=== PATIENT | female | born 1995 | race Caucasian/White ===

== ENCOUNTER → 2023-02-11 08:33 | Outpatient (CLI) | payer OTHER, SELFPAY ==
[2023-02-11 09:12] LABS: Add Manual Diff / Slide Review NO; Basophils Absolute Auto 0 /uL (0-100); Basophils Percent Auto 0.4 % (0-2); Eosinophils Absolute Auto 100 /uL (0-450); Eosinophils Percent Auto 2.1 % (2-4); Hematocrit 37.2 % (36-46); Hemoglobin 12.8 g/dL (12.0-16.0); Lymphocytes Absolute Auto 2100 /uL (1100-4500); Lymphocytes Percent Auto 40.8 % (25-40); Mean Corpuscular HGB Conc 34.3 % (30-36); Mean Corpuscular Hemoglobin 28.7 PG (26-34); Mean Corpuscular Volume 83.7 fL (80-100); Monocytes Absolute Auto 300 /uL (0-900); Monocytes Percent Auto 5.2 % (3-14); Neutrophils Absolute Auto 2700 /uL (1500-7000); Neutrophils Percent Auto 51.5 % (50-75); Platelet Count 226 X10^3/uL (150-400); Red Blood Cell Count 4.44 X10^6/uL (4.0-5.2); Red Cell Distribution Width 13.9 % (11.6-14.8); White Blood Cell Count 5.2 X10^3/uL (4.5-11.0)
[2023-02-11 09:33] LABS: HEMOLYSIS < 15 (0-50); Iron 138 ug/dL (37-170)
[2023-02-11 09:47] LABS: Percent Iron Saturation 39 % (15-50); Total Iron Binding Capacity 350 ug/dL (265-497); Transferrin 265 mg/dL (206-381)
[2023-02-11 10:12] LABS: Ferritin 34 ng/mL (6-137)
[2023-02-11 10:13] LABS: Appearance Urine UA CLEAR; Bilirubin Urine UA NEGATIVE (NEGATIVE); Color Urine UA YELLOW; Glucose Urine UA NEGATIVE (Negative); Ketones Urine UA TRACE (NEGATIVE); Leukocyte Esterase Urine UA NEGATIVE (NEGATIVE); Nitrite Urine UA NEGATIVE (Negative); Occult Blood Urine UA NEGATIVE (Negative); Protein Urine UA 2+ (Negative); Specific Gravity Urine UA >=1.030 (1.000-1.035); Urobilinogen Urine UA 0.2 E.U./dL (0.2)
[2023-02-11 10:17] LABS: pH Urine UA 5.5 (4.5-8.0)
[2023-02-11 10:21] LABS: Bacteria Urine None Seen; Culture Indicated Urine Cult Not Indicated; RBC Urine None Seen (0-5/HPF); Squamous Epithelial Cell Urine 1-5 /HPF (0-5/HPF); WBC Urine 1-5/HPF (0-5/HPF)
== END ==
PROVIDERS: PCP Family Medicine; Referring Provider Family Medicine; Visit Provider Family Medicine
DX: O14.90 Unspecified pre-eclampsia, unspecified trimester; D64.9 Anemia, unspecified; Z3A.00 Weeks of gestation of pregnancy not specified
CPT/HCPCS: 36415; 81001; 82728; 83540; 83550; 85025

== ENCOUNTER → 2023-04-22 13:33 | Outpatient (CLI) | payer OTHER, SELFPAY ==
[2023-04-22 14:40] LABS: Hematocrit 37.5 % (36-46); Hemoglobin 12.8 g/dL (12.0-16.0)
[2023-04-22 14:51] LABS: BUN Creatinine Ratio 21.3 (6-22); Blood Urea Nitrogen 13 mg/dL (7-17); Carbon Dioxide 29 mmol/L (22-32); Chloride 99 mmol/L (98-107); Estimated Glomerular Filt Rate > 60 mL/min (>60); Glucose 90 mg/dL (70-100); HEMOLYSIS < 15 (0-50); Potassium 4.1 mmol/L (3.4-5.1); Sodium 137 mmol/L (137-145)
[2023-04-22 16:42] LABS: Creatinine Urine Random 65.5 mg/dL; Protein (Total) Urine Random 8 mg/dL (0-12); Protein Creatinine Ratio Urine 0.12 GRAM/24H
== END ==
PROVIDERS: PCP Family Medicine; Referring Provider Student in an Organized Health Care Education/Training Program; Visit Provider Student in an Organized Health Care Education/Training Program
DX: N05.9 Unspecified nephritic syndrome with unspecified morphologic changes (principal); D64.9 Anemia, unspecified; R80.9 Proteinuria, unspecified
CPT/HCPCS: 36415; 80048; 82570; 84156; 85014; 85018

== ENCOUNTER → 2023-06-30 08:23 | Outpatient (CLI) | payer OTHER, SELFPAY | LOC: LAB 08:24 | PROVIDERS: PCP Family Medicine; Referring Provider Family Medicine; Visit Provider Family Medicine | DX: Q99.9 Chromosomal abnormality, unspecified (principal) | CPT/HCPCS: 36415 ==

== ENCOUNTER → 2023-09-11 11:12 | Outpatient (CLI) | payer OTHER, SELFPAY | PROVIDERS: PCP Family Medicine; Visit Provider Student in an Organized Health Care Education/Training Program | DX: O09.299 Supervision of pregnancy with other poor reproductive or obstetric history, unspecified trimester (principal) | CPT/HCPCS: 87086 ==

== ENCOUNTER 2023-10-13 11:23 | Day surgery (SDC) | payer OTHER, SELFPAY ==
[2023-10-13] VITALS (7 sets, daily range): BP systolic 85–128; BP diastolic 48–83; PULSE 52–86; RESP 10–16; TEMP 36.3–37.3; O2SAT 97–100; BMI 19.2
--- NOTE | 2023-10-13 | PATH_ITS ---
[facility] Accession Number: [id number] No. of containers..01 Tissue . 01 Material submitted: . product of conception - PRODUCTS OF CONCEPTION . 01 Diagnosis: PRODUCTS OF CONCEPTION: Chorionic villi present. No evidence of malignancy. MRV 10/15/2023 1340 Local . 01 Electronically signed: . Avery Hernández MD, PhD, Pathologist NPI- [id number] . 01 Gross description: . Received in formalin with two patient identifiers and consists of a 14.5 x 7.0 x 2.2 cm aggregate of clotted blood, white fibromembranous tissue, white spongy soft tissue. No parts or papilliferous tissue are appreciated. Winder Fixer sections are submitted in cassettes A1 and A2. ([id number]) /MRV 10/14/2023 1421 Local . 01 Pathologist provided ICD-10: O02.1 . 01 CPT . 159108 Specimen Comment: A courtesy copy of this report has been sent to [facility] Performed at: 01 [facility] [address] [place] [address], [place], [place] [id number] MD Jaya Moy MD Phone: [phone]
[2023-10-13] MEDS: LACTATED RINGERS 1,000 ML 42 ML IV (11:43)
[2023-10-13] MEDS: DOXYCYCLINE HYCLATE 100 MG TABLET 200 MG PO (11:44)
--- NOTE | 2023-10-13 11:47 | PM.PREOP ---
Pre-operative Note Interval Note History & Physical reviewed/Exam performed by Physician: Yes Changes to H&P: No H&P completed within 30 days and has changed as indicated here:: see H&P from 10/09/23 Surgical consent: The risks, benefits, and alternatives to surgery were discussed with the patient. We discussed the risk of bleeding, infection, uterine perforation, and possible uterine scarring. Anticipated hospital stay, post- surgical restrictions, and usual complications were discussed at length. The patient was also counseled that anesthesia carries its own risks and that any major surgery carries the rare risk of blood clots, pulmonary embolism, stroke, heart attack, or . There is a risk of needing blood transfusion and the risks of having the transfusion with blood products. All of the patient?s questions were answered to her satisfaction and she desires to proceed with surgery.
--- NOTE | 2023-10-13 12:42 | PM.OP.1 ---
Operative Date/Time/Diagnoses Date of procedure: 10/13/23 Time of procedure: 12:00 Pre-op diagnosis: Missed Post-op diagnosis: same Procedure & Clinicians Procedure: Suction dilation and curettage Same procedure as scheduled: Yes Indications: 28yo [id number] diagnosed with missed approximately 8wks EGA. Patient desired surgical management, thus she was counseled and consented for suction dilation and curettage. Surgeon: Litzy Alcantara Click Yes if Unassisted: Yes Anesthesia Type: General Operative Notes Findings: Moderate amount of tissue obtained. Slow uterine bleeding noted at the end of the case. Specimen(s): other (products of conception) Estimated Blood Loss (mL): 450 Blood products transfused: none Procedure in detail: The risks, benefits, indications and alternatives of the procedure were reviewed with the patient and informed consent was obtained. The pt was taken to the operating room where anesthesia was obtained without difficulty. The pt was then placed in the low lithotomy position using gel-padded Gregor Stirrups. SCDs were placed bilaterally for VTE prophylaxis. The pt was then prepped and draped in the sterile fashion. She received preoperative 200mg doxycycline for prophylaxis. A sterile speculum was placed in the patient?s vagina and the cervix was visualized.? A single tooth tenaculum was used to grasp the anterior lip of the cervix. The cervix was then gently, serially dilated to a size 8mm Hegar dilator. An 8mm curved suction catheter was then introduced into the uterine cavity and gently advanced to the uterine fundus. The suction device was then activated to 60mmHg and the catheter was rotated to clear the uterus of products of conception. Several passes were performed with a moderate amount of tissue obtained. A gentle, sharp curettage was then performed until a gritty texture was noted. All tissue was sent to pathology for review. The single tooth tenaculum was then removed from the anterior lip of the cervix. The tenaculum sites were noted to be hemostatic. All instruments were then removed from the patient?s vagina. At the completion of the case the sponge and needle counts were correct x 2. The patient tolerated the procedure well and was taken to the PACU in stable condition. Complications: none Post-operative Condition: stable Disposition: PACU Plan for aftercare: Discharge to home once meeting all discharge criteria.
== END 2023-10-13 12:52 | disposition home or self-care (01) ==
PROVIDERS: PCP Family Medicine; Referring Provider Student in an Organized Health Care Education/Training Program; Visit Provider Student in an Organized Health Care Education/Training Program
PROC: (CPT 58120; principal; 2023-10-13 12:45)
DX: O02.1 Missed abortion (principal)
CPT/HCPCS: 59820; J1100; J2250; J2405; J2704; J3010

== ENCOUNTER → 2024-03-09 13:43 | Outpatient (CLI) | payer OTHER, SELFPAY ==
[2024-03-09 16:55] LABS: Urine Chlamydia NOT DETECTED; Urine N gonorrhoeae NOT DETECTED
== END ==
PROVIDERS: PCP Family Medicine; Visit Provider Student in an Organized Health Care Education/Training Program
DX: Z34.80 Encounter for supervision of other normal pregnancy, unspecified trimester (principal)
CPT/HCPCS: 87491; 87591

== ENCOUNTER → 2024-03-27 09:18 | Outpatient (CLI) | payer OTHER, SELFPAY ==
[2024-03-27 10:39] LABS: Add Manual Diff / Slide Review NO; Basophils Absolute Auto 0 /uL (0-100); Basophils Percent Auto 0.3 % (0-2); Eosinophils Absolute Auto 0 /uL (0-450); Eosinophils Percent Auto 0.8 % (2-4); Hematocrit 34.4 % (36-46); Hemoglobin 11.9 g/dL (12.0-16.0); Lymphocytes Absolute Auto 1700 /uL (1100-4500); Mean Corpuscular HGB Conc 34.4 % (30-36); Mean Corpuscular Hemoglobin 29.2 PG (26-34); Mean Corpuscular Volume 84.7 fL (80-100); Monocytes Absolute Auto 300 /uL (0-900); Monocytes Percent Auto 4.9 % (3-14); Neutrophils Absolute Auto 3700 /uL (1500-7000); Platelet Count 250 X10^3/uL (150-400); Red Blood Cell Count 4.07 X10^6/uL (4.0-5.2); Red Cell Distribution Width 15.1 % (11.6-14.8); White Blood Cell Count 5.8 X10^3/uL (4.5-11.0)
[2024-03-27 10:56] LABS: Natera Collection Specimen Collected
[2024-03-27 11:08] LABS: Alanine Aminotransferase 19 IU/L (<35); Aspartate Aminotransferase 23 IU/L (14-36); BUN Creatinine Ratio 20.9 (6-22); Blood Urea Nitrogen 9 mg/dL (7-17); Estimated Glomerular Filt Rate > 60 mL/min (>60); Uric Acid 2.4 mg/dL (2.5-6.2)
[2024-03-27 11:11] LABS: Creatinine Urine Random 18.99 mg/dL; Protein (Total) Urine Random 12 mg/dL (0-12); Protein Creatinine Ratio Urine 0.63 GRAM/24H
[2024-03-27 18:56] LABS: Hepatitis B Surface Antigen NEGATIVE s/c (NEGATIVE)
[2024-03-27 19:26] LABS: HIV 1 & 2 Ab/Ag 4th Gen Combo NEGATIVE (NEGATIVE); Hep C Virus Ab w/Reflex Quant NEGATIVE s/c (NEGATIVE)
[2024-03-27 20:54] LABS: Rubella Antibody IgG 78.2 IU/mL (>15)
[2024-03-28 10:39] LABS: Varicella IgG Antibody Reactive (Non Reactive)
[2024-03-30 04:09] LABS: RPR Screen Non Reactive (Non Reactive)
== END ==
PROVIDERS: PCP Family Medicine; Referring Provider Student in an Organized Health Care Education/Training Program; Visit Provider Student in an Organized Health Care Education/Training Program
DX: O09.299 Supervision of pregnancy with other poor reproductive or obstetric history, unspecified trimester (principal); Z3A.11 11 weeks gestation of pregnancy
CPT/HCPCS: 36415; 80055; 82565; 82570; 84156; 84450; 84460; 84520; 84550; 86787; 86803; 86850; 86900; 86901; 87389

== ENCOUNTER → 2024-05-31 09:54 | Outpatient (CLI) | payer OTHER, SELFPAY ==
--- NOTE | 2024-05-31 09:55 | DI.US.S_ITS ---
PROCEDURE: US OB >= 14 WEEKS FETUS INDICATIONS: 20 week anatomy scan OUTSIDE/PRIOR DATING DATA: Last menstrual period (LMP): Unknown LMP-based estimated date of delivery (KOLE): 10/10/2024 First dating scan (date and location): 03/09/2024. Estimated date of delivery (KOLE) from first dating scan: 10/16/2024 TECHNIQUE: Real-time scanning was performed of the fetus, with image documentation and biometric measurements. Endovaginal scanning: No COMPARISON: None. FINDINGS: General: A single living intrauterine gestation is present. Presentation: Anterior; inferior tip is 0.6 cm from the cervical os Placenta: Placental position is anterior , without previa. Normal >2 cm. Low lying is <2 cm to the edge. Previa covers the internal os. Amniotic fluid index: 14 cm, normal range is 5-24 cm. Single deepest vertical pocket is 5.6 cm. heart rate: 146 beats per minute. Maternal cervical canal: 4.4 cm long. Normal lower limit is 2.5 cm. biometrics: Biparietal diameter: 5.1 cm Head circumference: 18.9 cm Abdominal circumference: 17.1 cm Femur length: 3.3 cm Clinically estimated gestational age: 20 weeks and 2 days Composite gestational age from present scan: 21 weeks and 2 days Estimated weight and percentile: 412 g, 92nd percentile Anatomic survey: Neuro: Ventricles are non-dilated at less than 10 mm. Cisterna magna is normal at 3-11 mm. Cerebellum is normal in size and morphology. Nuchal skin fold: Normal at less than 6 mm between 14-21 weeks gestational age. Face: Nose and lips, facial profile are normal. Spine: No evidence for spina bifida. Heart: 4-chambered heart is present, with normal ventricular outflow tracts. Diaphragm: Diaphragm is intact. Stomach: Left-sided stomach is present. Kidneys: No hydronephrosis. Normal is less than 5 mm in 2nd trimester, less than 7 mm in 3rd trimester. Cord: 3-vessel cord has orthotopic insertion. Bladder: Normal in size. Extremities: All 4 extremities identified. IMPRESSION: 1. Single live intrauterine with an estimated gestational age of 21 weeks and 2 days by ultrasound. 2. Estimated weight at 92nd percentile. 3. No sonographic anatomic abnormality of the fetus. 4. Anterior placenta with the inferior tip 0.6 cm from the cervical os. We strive to produce accurate, complete, and clear reports of imaging services. To assist us in improving patient care, this report was composed using standard report templates and voice recognition software. Therefore, it may contain abnormal punctuation, insertions and/or omissions. Occasional wrong-word or sound-alike substitutions may occur. Though we review the report and make efforts to correct it, we do recommend that the report be read carefully in proper context to recognize any text inaccuracies. Dictated by: Miakol Waggoner M.D. on 05/31/2024 at 15:43 Approved by: Maikol Waggoner M.D. on 05/31/2024 at 15:50
== END ==
PROVIDERS: PCP Family Medicine; Referring Provider Student in an Organized Health Care Education/Training Program; Visit Provider Student in an Organized Health Care Education/Training Program
DX: Z34.82 Encounter for supervision of other normal pregnancy, second trimester (principal); Z3A.21 21 weeks gestation of pregnancy
CPT/HCPCS: 76811; 76817

== ENCOUNTER → 2024-07-15 08:53 | Outpatient (CLI) | payer OTHER, SELFPAY ==
[2024-07-15 10:39] LABS: Hemoglobin 12.3 g/dL (12.0-16.0)
[2024-07-15 11:01] LABS: GTT (PREG) 1 Hour PP 50gm Dose 110 mg/dL (76-139)
== END ==
PROVIDERS: PCP Family Medicine; Referring Provider Student in an Organized Health Care Education/Training Program; Visit Provider Student in an Organized Health Care Education/Training Program
DX: Z13.1 Encounter for screening for diabetes mellitus (principal); Z13.0 Encounter for screening for diseases of the blood and blood-forming organs and certain disorders involving the immune mechanism
CPT/HCPCS: 36415; 82950; 85014; 85018

== ENCOUNTER → 2024-08-17 08:31 | Outpatient (CLI) | payer OTHER, SELFPAY ==
--- NOTE | 2024-08-17 08:33 | DI.US.S_ITS ---
PROCEDURE: US OB FOLLOW UP INDICATIONS: re-evaluate low lying placenta OUTSIDE/PRIOR DATING DATA: Last menstrual period (LMP): Not provided. LMP-based estimated date of delivery (KOLE): 10/10/2024. First dating scan (date and location): 03/09/2024. Estimated date of delivery (KOLE) from first dating scan: 10/16/2024. The calculations are made using the ultrasound KOLE of 10/16/2024. TECHNIQUE: Real-time scanning was performed of the fetus, with image documentation and biometric measurements. COMPARISON: [facility], US, US OB >= 14 WEEKS FETUS, 05/31/2024, 10:02. FINDINGS: General: A single living intrauterine gestation is present. Presentation: Vertex. Placenta: Placental position is anterior , without previa. It measures 7 cm from the internal os. Amniotic fluid index: 12.5 cm, normal range is 5-24 cm. Single deepest vertical pocket is 4.4 cm. heart rate: 145 beats per minute. Maternal cervical canal: 4.1 cm long. Normal lower limit is 2.5 cm. biometrics: Composite gestational age from initial scan: 31 weeks 3 days Other: Not applicable. IMPRESSION: Single live intrauterine with gestational age of 31 weeks 3 days. No evidence of low lying or placental previa. We strive to produce accurate, complete, and clear reports of imaging services. To assist us in improving patient care, this report was composed using standard report templates and voice recognition software. Therefore, it may contain abnormal punctuation, insertions and/or omissions. Occasional wrong-word or sound-alike substitutions may occur. Though we review the report and make efforts to correct it, we do recommend that the report be read carefully in proper context to recognize any text inaccuracies. Dictated by: Caitlin Armstrong M.D. on 08/17/2024 at 14:51 Approved by: Caitlin Armstrong M.D. on 08/17/2024 at 14:53
== END ==
PROVIDERS: PCP Family Medicine; Referring Provider Student in an Organized Health Care Education/Training Program; Visit Provider Student in an Organized Health Care Education/Training Program
DX: O44.40 Low lying placenta NOS or without hemorrhage, unspecified trimester (principal)
CPT/HCPCS: 76816

== ENCOUNTER → 2024-08-30 09:26 | Outpatient (CLI) | payer OTHER, SELFPAY ==
[2024-08-30 10:20] LABS: Alanine Aminotransferase 45 IU/L (<35); Albumin 3.5 g/dL (3.5-5.0); Albumin Globulin Ratio 1.2 (1.0-2.8); Alkaline Phosphatase 255 U/L (38-126); Aspartate Aminotransferase 44 IU/L (14-36); BUN Creatinine Ratio 15.2 (6-22); Bilirubin Total 0.6 mg/dL (0.2-1.3); Blood Urea Nitrogen 7 mg/dL (7-17); Calcium 9.5 mg/dL (8.4-10.2); Carbon Dioxide 19 mmol/L (22-32); Chloride 108 mmol/L (98-107); Estimated Glomerular Filt Rate > 60 mL/min (>60); Globulin 2.9 g/dL (1.7-4.1); Glucose 102 mg/dL (70-100); HEMOLYSIS < 15 (0-50); Potassium 3.9 mmol/L (3.4-5.1); Sodium 137 mmol/L (137-145); Total Protein 6.4 g/dL (6.3-8.2)
== END ==
PROVIDERS: PCP Family Medicine; Referring Provider Student in an Organized Health Care Education/Training Program; Visit Provider Student in an Organized Health Care Education/Training Program
DX: L29.9 Pruritus, unspecified (principal)
CPT/HCPCS: 36415; 80053; 82239

== ENCOUNTER 2024-08-30 09:39 | Outpatient (CLI) | payer OTHER, SELFPAY ==
--- NOTE | 2024-08-30 10:14 | PM.OBTRLD ---
Visit Information Visit Information Date of evaluation: 08/30/24 Primary OB Provider: Litzy Alcantara Comments/Additional reasons for admission: Patient called with new onset itching of palms/soles, worse at night over the weekend, as well as decreased movement. Vital Signs Vital Signs: vitals reviewed in OBIX, within normal parameters [facility] Medical History Encounter for supervision of other normal , unspecified trimester Proteinuria Missed (~10/2023) Migraine without aura Leg fracture Arm fracture Chromosome abnormalities Iron deficiency anemia Pre-eclampsia Surgical History History of removal of skin mole [place] teeth extracted Family History Brother Type 1 diabetes Chromosomal abnormality Father Benign neoplasm of ear Grandmother S/P CABG x 2 Heart disease Granddaughter Melanoma Grandmother Cancer Grandfather No problems noted. Social History marital status: number of children: 1 household members: spouse and children lives independently: Yes caregiver/support person: Yes housing: house pets and animals: Yes (dog) education level: vocational occupational status: unemployed current occupational exposures/hazards: No special juan needs: No travel history: recent ([place], domestic ) seatbelt use: always water heater temp set < 120 deg: Yes working smoke detector in home: Yes fire extinguisher in home: Yes carbon monox detector in home: Yes do you feel safe at home: Yes second hand exposure: No alcohol intake: former substance use type: does not use during the past year weight has: other (back to below pre-baby wt (daughter is currently 16 months old)) well-balanced diet: about half the time daily servings fruits/ve-4 caffeine: Yes (1 cup coffee in AM) Type(s) of exercise: walking frequency: daily Evaluation Evaluation Baseline heart rate: 140 Variability: Moderate (11-25) monitor accelerations: Present Monitor Decelerations: Absent Category of Tracing: Reactive Diagnosis, Plan/Disposition Final Diagnosis (1) Pruritus of in third trimester: Status: Acute (2) Elevated liver enzymes: Status: Acute (3) 33 weeks gestation of : Status: Acute Plan/Disposition Plan: 29yo at 33+2wks with presumed ICP based on symptoms and elevated LFTs today. Reactive NST. Bile acids drawn today. -advised to start ursodiol 300mg TID -advised to use hydroxyzine for itching as needed -will start weekly NSTs -delivery timing will be determined based on bile acid levels and other maternal factors OB Disposition: home
== END 2024-08-30 10:20 | disposition home or self-care (01) ==
LOC: OB 12:36
PROVIDERS: PCP Family Medicine; Referring Provider Student in an Organized Health Care Education/Training Program; Visit Provider Student in an Organized Health Care Education/Training Program
DX: O26.893 Other specified pregnancy related conditions, third trimester (principal); O36.8130 Decreased fetal movements, third trimester, not applicable or unspecified; L29.9 Pruritus, unspecified; R74.01 Elevation of levels of liver transaminase levels; Z3A.33 33 weeks gestation of pregnancy
CPT/HCPCS: 36415; 59025; 80053; 82239; G0378; G0379

== ENCOUNTER → 2024-09-01 15:50 | Outpatient (CLI) | payer OTHER, SELFPAY ==
[2024-09-03 23:11] LABS: Bile Acids 63.5 umol/L (0.0-10.0)
== END ==
PROVIDERS: PCP Family Medicine; Referring Provider Student in an Organized Health Care Education/Training Program; Visit Provider Student in an Organized Health Care Education/Training Program
DX: R74.8 Abnormal levels of other serum enzymes (principal); Z3A.33 33 weeks gestation of pregnancy
CPT/HCPCS: 36415; 82239

== ENCOUNTER 2024-09-07 09:09 | Outpatient (CLI) | payer OTHER, SELFPAY ==
--- NOTE | 2024-09-07 09:30 | DI.US.S_ITS ---
PROCEDURE: US OB LIMITED INDICATIONS: MEASURING LESS THAN DATES OUTSIDE/PRIOR DATING DATA: Last menstrual period (LMP): Not given. LMP-based estimated date of delivery (KOLE): 10/10/2024. First dating scan (date and location): 03/09/2024. Estimated date of delivery (KOLE) from first dating scan: 10/16/2024. The calculations are made using the assigned KOLE of 10/16/2024. TECHNIQUE: Real-time scanning was performed of the fetus, with image documentation and biometric measurements. Endovaginal scanning: Not performed COMPARISON: None. FINDINGS: General: A single living intrauterine gestation is present. Presentation: Vertex. Placenta: Placental position is anterior , without previa. Amniotic fluid index: 11.7 cm, normal range is 5-24 cm. Single deepest vertical pocket is 4.0 cm. heart rate: 133 beats per minute. Maternal cervical canal: Not well seen at late stage of . biometrics: Biparietal diameter: 8.9 cm, 35 weeks 6 days Head circumference: 32.8 cm, 37 weeks 2 days Abdominal circumference: 31.7 cm, 35 weeks 4 days Femur length: 6.6 cm, 34 weeks 0 days Clinically estimated gestational age: 34 weeks 3 days Composite gestational age from present scan: 35 weeks 5 days Estimated weight and percentile: 2666 g, 73rd percentile Other: Not applicable. IMPRESSION: Living late 3rd trimester intrauterine with no sonographic evidence of complications. Normal interval growth. Current ultrasound age is 9 days greater than clinical age. We strive to produce accurate, complete, and clear reports of imaging services. To assist us in improving patient care, this report was composed using standard report templates and voice recognition software. Therefore, it may contain abnormal punctuation, insertions and/or omissions. Occasional wrong-word or sound-alike substitutions may occur. Though we review the report and make efforts to correct it, we do recommend that the report be read carefully in proper context to recognize any text inaccuracies. Dictated by: Ottoniel Atkinson M.D. on 09/07/2024 at 10:37 Approved by: Ottoniel Atkinson M.D. on 09/07/2024 at 10:41
[2024-09-07 09:57] LABS: Add Manual Diff / Slide Review NO; Basophils Absolute Auto 100 /uL (0-100); Basophils Percent Auto 0.7 % (0-2); Eosinophils Absolute Auto 100 /uL (0-450); Hematocrit 37.6 % (36-46); Hemoglobin 12.9 g/dL (12.0-16.0); Lymphocytes Absolute Auto 2000 /uL (1100-4500); Lymphocytes Percent Auto 21.3 % (25-40); Mean Corpuscular HGB Conc 34.3 % (30-36); Mean Corpuscular Hemoglobin 30.1 PG (26-34); Mean Corpuscular Volume 87.8 fL (80-100); Monocytes Absolute Auto 600 /uL (0-900); Monocytes Percent Auto 6.6 % (3-14); Neutrophils Absolute Auto 6500 /uL (1500-7000); Neutrophils Percent Auto 70.4 % (50-75); Platelet Count 168 X10^3/uL (150-400); Red Blood Cell Count 4.28 X10^6/uL (4.0-5.2); Red Cell Distribution Width 13.4 % (11.6-14.8); White Blood Cell Count 9.2 X10^3/uL (4.5-11.0)
[2024-09-07 10:11] LABS: Alanine Aminotransferase 28 IU/L (<35); Albumin 3.7 g/dL (3.5-5.0); Albumin Globulin Ratio 1.1 (1.0-2.8); Alkaline Phosphatase 259 U/L (38-126); Aspartate Aminotransferase 35 IU/L (14-36); Bilirubin Total 0.5 mg/dL (0.2-1.3); Blood Urea Nitrogen 8 mg/dL (7-17); Calcium 9.8 mg/dL (8.4-10.2); Carbon Dioxide 17 mmol/L (22-32); Chloride 108 mmol/L (98-107); Estimated Glomerular Filt Rate > 60 mL/min (>60); Globulin 3.3 g/dL (1.7-4.1); Glucose 86 mg/dL (70-100); HEMOLYSIS < 15 (0-50); Potassium 3.8 mmol/L (3.4-5.1); Sodium 135 mmol/L (137-145); Uric Acid 5.2 mg/dL (2.5-6.2)
--- NOTE | 2024-09-07 13:34 | PM.OBTRLD ---
Visit Information Visit Information Date of evaluation: 09/07/24 Primary OB Provider: Litzy Alcantara Reason for Evaluation: Yes non-stress test non-stress test reason: hypertension/pre-eclampsia and other (ICP) Vital Signs Vital Signs: initial BP severe, all repeats were within normal parameters [facility] Medical History Encounter for supervision of other normal , unspecified trimester Proteinuria Missed (~10/2023) Migraine without aura Leg fracture Arm fracture Chromosome abnormalities Iron deficiency anemia Pre-eclampsia Surgical History History of removal of skin mole [place] teeth extracted Family History Brother Type 1 diabetes Chromosomal abnormality Father Benign neoplasm of ear Grandmother S/P CABG x 2 Heart disease Granddaughter Melanoma Grandmother Cancer Grandfather No problems noted. Social History marital status: number of children: 1 household members: spouse and children lives independently: Yes caregiver/support person: Yes housing: house pets and animals: Yes (dog) education level: vocational occupational status: unemployed current occupational exposures/hazards: No special juan needs: No travel history: recent ([place], domestic ) seatbelt use: always water heater temp set < 120 deg: Yes working smoke detector in home: Yes fire extinguisher in home: Yes carbon monox detector in home: Yes do you feel safe at home: Yes Smoking Status: Never smoker second hand exposure: No alcohol intake: former substance use type: does not use during the past year weight has: other (back to below pre-baby wt (daughter is currently 16 months old)) well-balanced diet: about half the time daily servings fruits/ve-4 caffeine: Yes (1 cup coffee in AM) Type(s) of exercise: walking frequency: daily Objective Imaging US - abdomen: Radiologist's impression: FINDINGS: General: A single living intrauterine gestation is present. Presentation: Vertex. Placenta: Placental position is anterior , without previa. Amniotic fluid index: 11.7 cm, normal range is 5-24 cm. Single deepest vertical pocket is 4.0 cm. heart rate: 133 beats per minute. Maternal cervical canal: Not well seen at late stage of . biometrics: Biparietal diameter: 8.9 cm, 35 weeks 6 days Head circumference: 32.8 cm, 37 weeks 2 days Abdominal circumference: 31.7 cm, 35 weeks 4 days Femur length: 6.6 cm, 34 weeks 0 days Clinically estimated gestational age: 34 weeks 3 days Composite gestational age from present scan: 35 weeks 5 days Estimated weight and percentile: 2666 g, 73rd percentile Other: Not applicable. IMPRESSION: Living late 3rd trimester intrauterine with no sonographic evidence of complications. Normal interval growth. Current ultrasound age is 9 days greater than clinical age. Labs 09/07/24 09:40 09/07/24 09:40 Labs: Laboratory Results - last 24 hr 09/07/24 09:40 WBC 9.2 RBC 4.28 Hgb 12.9 Hct 37.6 MCV 87.8 MCH 30.1 MCHC 34.3 RDW 13.4 Plt Count 168 Neut % (Auto) 70.4 Lymph % (Auto) 21.3 L [place] % (Auto) 6.6 Eos % (Auto) 1.0 L Baso % (Auto) 0.7 Neut # (Auto) 6500 Lymph # (Auto) 2000 [place] # (Auto) 600 Eos # (Auto) 100 Baso # (Auto) 100 Sodium 135 L Potassium 3.8 Chloride 108 H Carbon Dioxide 17 L BUN 8 Creatinine 0.50 L Estimated GFR > 60 BUN/Creatinine Ratio 16.0 Glucose 86 Uric Acid 5.2 Calcium 9.8 Total Bilirubin 0.5 AST 35 ALT 28 Alkaline Phosphatase 259 H Total Protein 7.0 Albumin 3.7 Globulin 3.3 Albumin/Globulin Ratio 1.1 Evaluation Evaluation Baseline heart rate: 140 Variability: Moderate (11-25) monitor accelerations: Present Monitor Decelerations: Absent Category of Tracing: Reactive Diagnosis, Plan/Disposition Final Diagnosis (1) Intrahepatic cholestasis of in third trimester: Status: Acute (2) Elevated blood pressure reading in office without diagnosis of hypertension: Status: Acute (3) 34 weeks gestation of : Status: Acute Plan/Disposition Plan: 29yo at 34+3wks evaluated in triage for elevated BPs today in clinic, as well as weekly NST due to diagnosis of ICP. She had normal labs, with a normal growth US completed today. No urine p:c was collected today, as patient has known proteinuria. -reviewed signs/symptoms of severe pre-e, as well as reviewed decreased FM precautions -follow-up for weekly NSTs -plan for delivery at 37wks or sooner as medically indicated OB Disposition: home
== END 2024-09-07 10:26 | disposition home or self-care (01) ==
LOC: LABOR 09:41 → OB 10:46
PROVIDERS: PCP Family Medicine; Referring Provider Student in an Organized Health Care Education/Training Program; Visit Provider Student in an Organized Health Care Education/Training Program
DX: O26.643 Intrahepatic cholestasis of pregnancy, third trimester (principal); O26.893 Other specified pregnancy related conditions, third trimester; R03.0 Elevated blood-pressure reading, without diagnosis of hypertension; Z3A.34 34 weeks gestation of pregnancy
CPT/HCPCS: 36415; 59025; 76815; 80053; 84550; 85025; G0378; G0379

== ENCOUNTER 2024-09-14 08:54 | Outpatient (CLI) | payer OTHER, SELFPAY ==
--- NOTE | 2024-09-14 09:24 | P.TNLD_ITS ---
Visit Information Visit Information Date of evaluation: 09/14/24 Primary OB Provider: Litzy Alcantara Reason for Evaluation: Yes non-stress test non-stress test reason: other (ICP) Vital Signs Vital Signs: Vitals reviewed in obix, within normal parameters [facility] Medical History Encounter for supervision of other normal , unspecified trimester Proteinuria Missed (~10/2023) Migraine without aura Leg fracture Arm fracture Chromosome abnormalities Iron deficiency anemia Pre-eclampsia Surgical History History of removal of skin mole [place] teeth extracted Family History Brother Type 1 diabetes Chromosomal abnormality Father Benign neoplasm of ear Grandmother S/P CABG x 2 Heart disease Granddaughter Melanoma Grandmother Cancer Grandfather No problems noted. Social History marital status: number of children: 1 household members: spouse and children lives independently: Yes caregiver/support person: Yes housing: house pets and animals: Yes (dog) education level: vocational occupational status: unemployed current occupational exposures/hazards: No special juan needs: No travel history: recent ([place], domestic ) seatbelt use: always water heater temp set < 120 deg: Yes working smoke detector in home: Yes fire extinguisher in home: Yes carbon monox detector in home: Yes do you feel safe at home: Yes second hand exposure: No alcohol intake: former substance use type: does not use during the past year weight has: other (back to below pre-baby wt (daughter is currently 16 months old)) well-balanced diet: about half the time daily servings fruits/ve-4 caffeine: Yes (1 cup coffee in AM) Type(s) of exercise: walking frequency: daily Evaluation Evaluation Baseline heart rate: 135 Variability: Moderate (11-25) monitor accelerations: Present Monitor Decelerations: Absent Category of Tracing: Reactive Diagnosis, Plan/Disposition Final Diagnosis (1) Intrahepatic cholestasis of in third trimester: Status: Acute Plan/Disposition OB Disposition: home
== END 2024-09-14 09:30 | disposition home or self-care (01) ==
LOC: OB 12:39
PROVIDERS: PCP Family Medicine; Referring Provider Student in an Organized Health Care Education/Training Program; Visit Provider Student in an Organized Health Care Education/Training Program
DX: O26.643 Intrahepatic cholestasis of pregnancy, third trimester (principal); Z3A.35 35 weeks gestation of pregnancy
CPT/HCPCS: 59025; G0378; G0379

== ENCOUNTER → 2024-09-21 09:32 | Outpatient (CLI) | payer OTHER, SELFPAY ==
[2024-09-22 10:48] LABS: Strep Grp B PCR NEG for Grp B Strep
== END ==
PROVIDERS: PCP Family Medicine; Visit Provider Student in an Organized Health Care Education/Training Program
DX: Z36.85 Encounter for antenatal screening for Streptococcus B (principal)
CPT/HCPCS: 87653

== ENCOUNTER 2024-09-21 09:40 | Outpatient (CLI) | payer OTHER, SELFPAY ==
[2024-09-21 10:59] LABS: Add Manual Diff / Slide Review NO; Basophils Absolute Auto 100 /uL (0-100); Basophils Percent Auto 0.9 % (0-2); Eosinophils Absolute Auto 100 /uL (0-450); Eosinophils Percent Auto 0.8 % (2-4); Hematocrit 38.5 % (36-46); Hemoglobin 13.3 g/dL (12.0-16.0); Lymphocytes Absolute Auto 1900 /uL (1100-4500); Lymphocytes Percent Auto 21.4 % (25-40); Mean Corpuscular HGB Conc 34.4 % (30-36); Mean Corpuscular Hemoglobin 30.3 PG (26-34); Mean Corpuscular Volume 88.1 fL (80-100); Monocytes Absolute Auto 600 /uL (0-900); Monocytes Percent Auto 6.2 % (3-14); Neutrophils Absolute Auto 6200 /uL (1500-7000); Neutrophils Percent Auto 70.7 % (50-75); Platelet Count 155 X10^3/uL (150-400); Red Blood Cell Count 4.37 X10^6/uL (4.0-5.2); Red Cell Distribution Width 13.8 % (11.6-14.8); White Blood Cell Count 8.8 X10^3/uL (4.5-11.0)
[2024-09-21 11:11] LABS: Alanine Aminotransferase 27 IU/L (<35); Albumin 3.9 g/dL (3.5-5.0); Albumin Globulin Ratio 1.2 (1.0-2.8); Alkaline Phosphatase 277 U/L (38-126); Aspartate Aminotransferase 39 IU/L (14-36); BUN Creatinine Ratio 18.4 (6-22); Bilirubin Total 0.4 mg/dL (0.2-1.3); Blood Urea Nitrogen 9 mg/dL (7-17); Calcium 9.6 mg/dL (8.4-10.2); Carbon Dioxide 19 mmol/L (22-32); Chloride 108 mmol/L (98-107); Estimated Glomerular Filt Rate > 60 mL/min (>60); Globulin 3.3 g/dL (1.7-4.1); Glucose 77 mg/dL (70-99); HEMOLYSIS < 15 (0-50); Sodium 134 mmol/L (137-145); Total Protein 7.2 g/dL (6.3-8.2); Uric Acid 5.4 mg/dL (2.5-6.2)
== END 2024-09-21 10:49 | disposition home or self-care (01) ==
LOC: LABOR 10:14 → OB 12:14
PROVIDERS: PCP Family Medicine; Referring Provider Student in an Organized Health Care Education/Training Program; Visit Provider Student in an Organized Health Care Education/Training Program
DX: O26.643 Intrahepatic cholestasis of pregnancy, third trimester (principal); Z3A.36 36 weeks gestation of pregnancy; Z87.59 Personal history of other complications of pregnancy, childbirth and the puerperium
CPT/HCPCS: 36415; 59025; 80053; 84550; 85025; 87653; G0378; G0379

== ENCOUNTER 2024-09-27 10:06 | Inpatient (IN) | payer OTHER, SELFPAY ==
[2024-09-27] MEDS: LACTATED RINGERS 1,000 ML 999 ML IV (11:00)
[2024-09-27 11:23] LABS: Add Manual Diff / Slide Review NO; Basophils Absolute Auto 100 /uL (0-100); Basophils Percent Auto 0.8 % (0-2); Eosinophils Absolute Auto 0 /uL (0-450); Eosinophils Percent Auto 0.4 % (2-4); Hematocrit 39.2 % (36-46); Hemoglobin 13.2 g/dL (12.0-16.0); Lymphocytes Absolute Auto 1700 /uL (1100-4500); Lymphocytes Percent Auto 19.6 % (25-40); Mean Corpuscular HGB Conc 33.6 % (30-36); Mean Corpuscular Hemoglobin 29.7 PG (26-34); Mean Corpuscular Volume 88.5 fL (80-100); Monocytes Absolute Auto 400 /uL (0-900); Monocytes Percent Auto 4.6 % (3-14); Neutrophils Absolute Auto 6600 /uL (1500-7000); Neutrophils Percent Auto 74.6 % (50-75); Platelet Count 179 X10^3/uL (150-400); Red Blood Cell Count 4.43 X10^6/uL (4.0-5.2); White Blood Cell Count 8.9 X10^3/uL (4.5-11.0)
--- NOTE | 2024-09-27 11:31 | PM.OBHP.IH.1 ---
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 She is feeling well, no new concerns today. care: good care Dating criteria OB: LMP confirmed by 1st trimester US Ultrasounds: normal mid trimester US Obstetrical complications: other Narrative: Ultrasound Ultrasound Details:: Dating US 03/09/24: ramirez IUP with CRL 1.94cm (8+3wks), + FHR 179, normal appearing uterus, cervix, bilateral ovaries Anatomy US 05/31/24: normal anatomy, anterior placenta low-lying (0.6cm from the os), EFW 92%ile Follow-up US 08/17/24: resolution of low-lying placenta, vertex presentation Expected Delivery Route/Plan repeat Specific Issues/Plans [x ] cfDNA- low risk XX Intrahepatic cholestasis of (bile acids 63)--> on ursodiol 300mg TID; [? x] weekly NST > 32 weeks (scheduled);?[ x] growth sono- 73%ile 09/07;? [x? ] delivery at 37 weeks- scheduled 09/27 Gestational hypertension--> mildly elevated LFTs otherwise normal PIH labs 09/21 Low-lying placenta on anatomy US--> [x ] repeat US 30-32wks- RESOLVED Hx of c/s at 41wks for NRFHT --> planned repeat c/s Hx of Pre-eclampsia w/ persistent baseline proteinuria (urine p:c 0.63 with NOB labs) --> [x] ASA (pt started at 20wks) Anemia--> baseline H/H 11.9/34.4 Julian Assigned to [place] Indications Operative indications ( section): previous uterine surgery Preadmission Labs Last OB Lab Results: Blood Type O Positive 03/27/24 09:55 Antibody Screen Negative 03/27/24 09:55 Hct 39.2 % (36-46) 09/27/24 10:55 Hgb 13.2 g/dL (12.0-16.0) 09/27/24 10:55 Hep Bs Antigen Negative s/c (NEGATIVE) 03/27/24 09:55 Hepatitis C Antibody Negative s/c (NEGATIVE) 03/27/24 09:55 Rubella Antibody 78.2 IU/mL (>15) 03/27/24 09:55 VZV IgG Antibody Reactive (Non Reactive) 03/27/24 09:55 Glucose 1 Hr 50 gm 110 mg/dL (76-139) 07/15/24 10:09 Group B Strep (PCR) Neg for grp b strep 09/21/24 09:32 Glucose Tolerance Testin hr (negative) -: Chlamydia screen: negative, Gonorrhea screen: negative and Urine: negative -: PAP smear: Normal Genetic Screens: Cell-free DNA: Normal External Labs -: Urine: negative Prior (ies) Past Pregnancies Del. Date GA/Weeks Labor Lgth Wt Sex Route Outcome Anesthesia Place Delv Breastfeed Preg Comp Name 04/13/22 40.5 2 7 lb 14.986 oz Female live - full term epidural [facility] 1 year pre-eclampsia other [place] 10/13/23 8 spontaneous Delivery Date: 04/13/22 Last Updated by: Lady Marroquin RN Preeclampsia developed ~40 wk, lasted ~6 weeks PP; anemia; persistent proteinuria . C/S for intolerance and increasing BP Delivery Date: 10/13/23 Last Updated by: Litzy Alcantara, MAB s/p D&C Evaluation Evaluation Baseline heart rate: 130 Variability: Moderate (11-25) monitor accelerations: Present Monitor Decelerations: Absent Status: Category l [facility] Medical History Encounter for supervision of other normal , unspecified trimester Proteinuria Missed (~10/2023) Migraine without aura Leg fracture Arm fracture Chromosome abnormalities Iron deficiency anemia Pre-eclampsia Surgical History History of removal of skin mole [place] teeth extracted Family History Brother Type 1 diabetes Chromosomal abnormality Father Benign neoplasm of ear Grandmother S/P CABG x 2 Heart disease Granddaughter Melanoma Grandmother Cancer Grandfather No problems noted. Social History marital status: number of children: 1 household members: spouse and children lives independently: Yes caregiver/support person: Yes housing: house pets and animals: Yes (dog) education level: vocational occupational status: unemployed current occupational exposures/hazards: No special juan needs: No travel history: recent ([place], domestic ) seatbelt use: always water heater temp set < 120 deg: Yes working smoke detector in home: Yes fire extinguisher in home: Yes carbon monox detector in home: Yes do you feel safe at home: Yes Smoking Status: Never smoker second hand exposure: No alcohol intake: former substance use type: does not use during the past year weight has: other (back to below pre-baby wt (daughter is currently 16 months old)) well-balanced diet: about half the time daily servings fruits/ve-4 caffeine: Yes (1 cup coffee in AM) Type(s) of exercise: walking frequency: daily Meds Home Medications and Allergies Home Medications Medication Instructions Recorded Confirmed Type Elevit PO 02/10/24 09/21/24 History aspirin 81 mg chewable tablet 81 mg PO DAILY 08/28/24 09/21/24 History hydroxyzine HCl 25 mg tablet 25 mg PO TID PRN itching #90 tabs 08/31/24 09/21/24 Rx ursodiol 300 mg capsule 300 mg PO TID #60 caps 09/16/24 09/21/24 Rx Allergies Allergy/AdvReac Type Severity Reaction Status Date / Time codeine Allergy Mild Rash Verified 09/21/24 09:30 Review of Systems Review of Systems ROS: Yes All systems reviewed with the patient and are negative except as otherwise documented OB Exam Vital signs Blood Pressure: 126/86 Pulse Rate: 85 Respiratory Rate: 16 Temperature: 98.5 F HENMT Head: normal to inspection and normocephalic Eyes General: appearance normal, both eyes and all related structures Resp Effort & Inspection: normal respiratory effort and able to speak in complete sentences Extremities Lower extremity: Yes normal to inspection GI Inspection: normal to inspection Other: gravid, nontender, nondistended Objective Labs 09/27/24 10:55 09/27/24 10:55 Assessment and Plan Assessment and Plan Assessment and Plan narrative: 29yo at 37+2wks admitted for repeat due to intrahepatic cholestasis of . -CBC, T&S on admission -NST on admission -neuraxial anesthesia -GBS neg, 2g Ancef for surgical prophylaxis -PPH risk low -VTE risk low, SCDs for ppx -will move to OR for delivery once all teams ready counseling: It was explained to the patient that a section is a surgery to deliver the baby through an incision in the abdominal wall and uterus.? All procedures can be associated with risk and unforeseen complications, which can be immediate or delayed.? Risks and complications of section include, but are not limited to:? infection of the uterus, pelvic organs, or skin; inadvertent injury to internal organs such as the bowel, bladder, or possibly even the baby; blood loss, transfusion, and/or life-threatening hemorrhage requiring hysterectomy; blood clots in the legs, pelvic organs, or lungs; adverse reaction to medications or anesthesia during surgery; development of placenta accreta spectrum in a subsequent ; and increased risk of section in a subsequent . Time-Based Coding :: [20min] spent with patient and on the chart (including review of chart, obtaining history, exam, reviewing outside data, placing orders, documenting exam and treatment plan, and counseling patient) on [09/27/24].
[2024-09-27 11:33] LABS: Alanine Aminotransferase 31 IU/L (<35); Albumin 3.8 g/dL (3.5-5.0); Albumin Globulin Ratio 1.2 (1.0-2.8); Alkaline Phosphatase 289 U/L (38-126); Aspartate Aminotransferase 45 IU/L (14-36); BUN Creatinine Ratio 19.2 (6-22); Bilirubin Total 0.4 mg/dL (0.2-1.3); Blood Urea Nitrogen 10 mg/dL (7-17); Calcium 9.2 mg/dL (8.4-10.2); Carbon Dioxide 21 mmol/L (22-32); Chloride 106 mmol/L (98-107); Estimated Glomerular Filt Rate > 60 mL/min (>60); Globulin 3.1 g/dL (1.7-4.1); Glucose 73 mg/dL (70-99); HEMOLYSIS < 15 (0-50); Sodium 135 mmol/L (137-145); Total Protein 6.9 g/dL (6.3-8.2)
[2024-09-27 11:40] VITALS: BP 121/80; BP 126/86; PULSE 85; RESP 16; TEMP 36.9
[2024-09-27] MEDS: CITRIC ACID/SODIUM CITRATE 15 ML SOLUTION 30 ML PO (11:54)
[2024-09-27] MEDS: CEFAZOLIN 2 GM/100 ML PREMIX 100 ML IV (12:05)
--- NOTE | 2024-09-27 12:32 | SUR.OPER ---
Supine on padded OR bed, head on pillow, arms secured on padded arm boards at <90 degrees abduction, bump to right hip, legs uncrossed, safety belt at thigh.
[2024-09-27] MEDS: OXYTOCIN PREMIX 30 UNIT/500 ML PLAST..BAG 200 UNIT IV (12:37)
[2024-09-27 13:22] VITALS: BP 105/75; PULSE 72; RESP 12; TEMP 36.3; O2SAT 100
--- NOTE | 2024-09-27 13:23 | P.OP_ITS ---
Operative Date/Time/Diagnoses Date of procedure: 09/27/24 Time of procedure: 12:30 Pre-op diagnosis: 1. Ramírez intrauterine gestation at 37+2 weeks 2. Intrahepatic cholestasis of 3. Gestational hypertension 4. History of prior delivery 5. History of pre-eclampsia in prior Post-op diagnosis: same (delivered via repeat section) Procedure & Clinicians Procedure: Repeat low transverse section Same procedure as scheduled: Yes Indications: 29yo at 37+2wks admitted for planned repeat due to intrahepatic cholestasis of as well as gestational hypertension. Surgeon: Litzy Alcantara Offset Label Rewinder: Chelsea Garcia Reason for Offset Label Rewinder: Offset Label Rewinder was necessary for timely, efficient, and safe completion of the procedure. Anesthesia Type: Spinal Operative Notes Findings: Normal-appearing uterus and bilateral fallopian tubes and ovaries. Clear fluid noted with AROM. Delivery productive of a viable female in cephalic presentation. Closure Type: primary Intraoperative meds administered: Duramorph, Ketorolac, Pitocin and Tranexamic acid Applied: Catheter Estimated Blood Loss (mL): 931 Blood products transfused: none Procedure in detail: The risks, benefits, indications and alternatives of the procedure were reviewed with the patient and informed consent was obtained. The patient was taken to the operating room where spinal anesthesia was obtained without difficulty and was found to be adequate. Sequential compression devices were placed bilaterally for VTE prophylaxis. She was then prepped and draped in the normal, sterile fashion in the dorsal supine position with a leftward tilt. She received 2g Ancef for surgical prophylaxis. A Pfannenstiel skin incision was then made with the scalpel and carried through to the underlying layer of fascia. The fascia was incised in the midline and the incision extended laterally with the Newell scissors. The superior aspect of the incision was grasped, tented up with Rudy clamps and the rectus muscles were dissected off bluntly, aided with Newell scissors. The rectus muscles were then at the midline. The peritoneum was identified, and entered digitally. The peritoneal incision was then extended horizontally, superiorly and inferiorly, with good visualization of the bladder. The Alfonso retractor was then inserted. The lower uterine segment was incised in a transverse fashion with the scalpel. The uterine incision was then extended manually in a cephalad/caudad direction. The amniotic sac was artificially ruptured, productive of clear fluid. The infant?s head delivered atraumatically through the hysterotomy without dif ficulty, followed by the body.? The cord was doubly clamped and cut after a 60sec delay with the infant handed off to the waiting pediatrics team. The placenta was then removed initially with gentle traction on the umbilical cord, however the cord avulsed during this process, so the placenta was then manually extracted. The uterus was then left in-situ and cleared of all clots and debris. The uterine incision was repaired with 0-vicryl in a running, locked fashion with excellent hemostasis achieved. The paracolic gutters were cleared of all clot and debris. The hysterotomy was again inspected and noted to be hemostatic. The Alfonso retractor was then removed. The rectus muscles were oozing in various spots, which were coagulated with the Bovie cautery, and PerClot hemostatic agent was applied as well. The fascia was then reapproximated with 0-vicryl in a running fashion. The subcutaneous layer was closed with 3-0 vicryl in simple, interrupted sutures. The skin was closed with 4-0 monocryl in a subcuticular fashion. The incision was then dressed with steri-strips and a pressure dressing was applied. At the completion of the case, a Crede maneuver was performed with good uterine tone and minimal vaginal bleeding noted.? The patient tolerated the procedure well. Sponge, lap and needle counts were correct x3. The patient was taken to the recovery room in stable condition. Complications: none Baby 1: Delivery Date: 09/27/24 Delivery Time: 12:37 Infant Gender: Female Presentation: vertex Position: Right Occiput Posterior Placental Delivery Description: Expressed and Manual Removal (cord avulsed during delivery) Cord Vessel Description: 3 Vessels score (1 min): 6 score (5 min): 8 weight: 6 lb 6.577 oz Post-operative Condition: stable Disposition: PACU Aftercare: routine postop
[2024-09-27 13:26] VITALS: BP 125/59; PULSE 68; RESP 13; O2SAT 99
[2024-09-27 13:31] VITALS: BP 125/66; PULSE 68; RESP 10; O2SAT 100
[2024-09-27 13:36] VITALS: BP 137/62; PULSE 67; RESP 12; TEMP 36.3; O2SAT 100
[2024-09-27] MEDS: LACTATED RINGERS 1,000 ML 120 ML IV ×2 (13:36→14:19)
--- NOTE | 2024-09-27 13:48 | SUR.PHASEI ---
Pt to BC in bed iwth baby on breast. Sindy Rn at bedside. Abdiel with approx 100ml for surgery and pacu. BC to claim.
[2024-09-27] MEDS: LANOLIN OINT 7 GM 1 APPLIC TOP (14:20)
[2024-09-27] MEDS: ACETAMINOPHEN IV 1,000 MG/100 ML VIAL 400 MG IV (14:20)
[2024-09-27] MEDS: TRANEXAMIC ACID 1,000 MG in SODIUM CHLORIDE 0.9% 100 ML 200 MG IV (14:42)
[2024-09-27] MEDS: miSOPROStoL 200 MCG TABLET 800 MCG PR (14:42)
[2024-09-27] MEDS: ONDANSETRON 4 MG/2 ML INJ IV (15:32)
[2024-09-27 18:19] VITALS: TEMP 37.2
[2024-09-27] MEDS: KETOROLAC 30 MG/ML VIAL IV (18:19)
[2024-09-27] MEDS: ACETAMINOPHEN 325 MG TABLET 650 MG PO (20:20)
[2024-09-28] MEDS: KETOROLAC 30 MG/ML VIAL IV ×2 (00:17→09:59)
[2024-09-28] MEDS: ACETAMINOPHEN 325 MG TABLET 650 MG PO ×4 (03:14→22:13)
[2024-09-28 06:14] LABS: Add Manual Diff / Slide Review NO; Basophils Absolute Auto 0 /uL (0-100); Basophils Percent Auto 0.4 % (0-2); Eosinophils Absolute Auto 0 /uL (0-450); Eosinophils Percent Auto 0.1 % (2-4); Hematocrit 28.1 % (36-46); Hemoglobin 9.7 g/dL (12.0-16.0); Lymphocytes Absolute Auto 700 /uL (1100-4500); Mean Corpuscular HGB Conc 34.6 % (30-36); Mean Corpuscular Hemoglobin 30.4 PG (26-34); Mean Corpuscular Volume 87.9 fL (80-100); Monocytes Absolute Auto 500 /uL (0-900); Monocytes Percent Auto 3.9 % (3-14); Neutrophils Absolute Auto 10900 /uL (1500-7000); Neutrophils Percent Auto 89.6 % (50-75); Platelet Count 132 X10^3/uL (150-400); Red Cell Distribution Width 13.6 % (11.6-14.8); White Blood Cell Count 12.2 X10^3/uL (4.5-11.0)
[2024-09-28] MEDS: PRENATAL VIT,CALC/IRON/FOLIC 1 TABLET 1 TAB PO (09:58)
[2024-09-28] MEDS: DOCUSATE 100 MG CAPSULE PO (09:59)
--- NOTE | 2024-09-28 12:14 | PM.OBPN.1 ---
Subjective - OB Subjective Patient comments: pain well controlled Date Patient Seen: 09/28/24 Time Patient Seen: 12:14 Interval history: 29yo POD#1 s/p RLTCS at 37wks for ICP and gHTN. She reports feeling well, pain is controlled with pain medications. Has ambulated without dizziness or lightheadedness. [place] catheter was removed this morning, and she has been voiding spontaneously. Reports her vaginal bleeding is similar to a period. Exam Vital Signs (past 8 hours): Oxygen Delivery Method Room Air mild range BPs yesterday, normal today afebrile, though Tmax 100 Const General: comfortable and No acute distress Resp Effort & Inspection: normal respiratory effort and able to speak in complete sentences GI Other: soft, mild fundal tenderness with deviation to the right Skin Other: Pressure bandage removed; incision clean/dry/intact with Steri-Strips in place Neuro Cognition: normal cognition Speech: speech normal Extrem General: no pedal edema and no calf tenderness Psych Affect: normal affect Attitude: cooperative Objective Labs 09/28/24 05:56 09/27/24 10:55 Labs: Laboratory Results - last 24 hr 09/28/24 05:56 WBC 12.2 H RBC 3.20 L Hgb 9.7 L Hct 28.1 L MCV 87.9 MCH 30.4 MCHC 34.6 RDW 13.6 Plt Count 132 L Neut % (Auto) 89.6 H Lymph % (Auto) 6.0 L [place] % (Auto) 3.9 Eos % (Auto) 0.1 L Baso % (Auto) 0.4 Neut # (Auto) 14135 H Lymph # (Auto) 700 L [place] # (Auto) 500 Eos # (Auto) 0 Baso # (Auto) 0 Assessment & Plan Assessment and Plan (1) Acute postoperative anemia due to expected blood loss: Status: Acute (2) Previous delivery, delivered: Status: Acute (3) Gestational hypertension: Status: Acute (4) Intrahepatic cholestasis of in third trimester: Status: Acute Plan day: 1 plan OB: routine postop care Comments: 29-year-old [id number] POD#1 s/p RLTCS, doing well in the postoperative period. -given her mild fundal tenderness as well as mildly elevated temp overnight, continue to monitor for signs of infection today -continue monitoring blood pressures, which have been normal range today -encouraged to take an iron supplement to help with her anemia -if mom and baby do well, anticipate discharge home tomorrow with blood pressure check on Friday Time-Based Coding :: [20min] spent with patient and on the chart (including review of chart, obtaining history, exam, reviewing outside data, placing orders, documenting exam and treatment plan, and counseling patient) on [09/28/24].
[2024-09-28] MEDS: IBUPROFEN 600 MG TABLET PO ×2 (15:53→22:12)
[2024-09-28] MEDS: OXYCODONE IR 5 MG TABLET PO ×2 (17:19→23:16)
[2024-09-28] MEDS: FERROUS SULFATE 325 MG TABLET PO (22:13)
[2024-09-29] MEDS: IBUPROFEN 600 MG TABLET PO ×2 (04:23→10:46)
[2024-09-29] MEDS: ACETAMINOPHEN 325 MG TABLET 650 MG PO ×2 (04:23→10:47)
[2024-09-29] MEDS: ONDANSETRON 4 MG ODT SL (05:29)
--- NOTE | 2024-09-29 07:46 | PM.OBDS.1 ---
Discharge Providers Provider Date of admission: 09/27/24 10:06 Discharge Date: 09/29/24 Primary care physician: Barrett Cueto DO Consults: 09/27/24 14:08 Consult to [employer] Routine Comment: Discharge provider: Layla Valladares MD Summary Hospital Course Date Patient Seen: 09/29/24 Time Patient Seen: 07:46 Hospital Course: 29yo at 37+2wks presented to facility for planned repeat due to intrahepatic cholestasis of , gestaional HTN. Pt underwent procedure without complication with delivery of liveborn female . Postoperative and course was without complication. Patient met all discharge milestones with ROBF, ambulating and voiding without difficulty, pain well controlled with oral analgesia and was discharged to home on POD2. Patient remained without BP exacerbation throughout admission and will have short interval f/u at time of appointment with Dr. Smith for interval BP check, routine 1wk incision check in office with Dr. Alcantara. Peripartum Data Delivery Method: Section complications: none [place] 1: Gender: Female Disposition of : home Discharge Diagnosis (1) Acute postoperative anemia due to expected blood loss: Status: Acute (2) Previous delivery, delivered: Status: Acute (3) Gestational hypertension: Status: Acute (4) Intrahepatic cholestasis of in third trimester: Status: Acute Status at Discharge Cognitive/behavioral status at discharge: oriented Functional status at discharge: independent ambulation Overall status at discharge: patient is back to baseline Time Spent with Patient Time attestation: Total time spent providing and/or coordinating discharge services: Time spent: Less than 30 minutes Specific discharge activities: No heavy lifting >10# for 2 weeks, no more than 15# for 4 weeks thereafter Objective Labs 09/28/24 05:56 09/27/24 10:55 Exam Vital Signs (past 8 hours): Oxygen Delivery Method Room Air Const General: cooperative, healthy appearing, comfortable and well developed Nutritional Appearance: average body habitus Orientation: alert, awake and oriented x3 Limitations: mental status not altered HENMT Head: normal to inspection Resp Effort & Inspection: normal respiratory effort and able to speak in complete sentences Cardio Pulses: normal peripheral pulses GI Inspection: normal to inspection Palpation: soft Other: fundus firm << umb, non-tender pfann incision, steris c/d/i Other: deferred Skin General: no rashes or lesions noted Neuro General: patient alert, patient awake and patient oriented x3 Extrem General: normal to inspection Psych Mental Status: mental status grossly normal Judgment: judgment good Discharge Plan Discharge Plan Patient Disposition: Home Discharge orders & Medications Prescriptions: New oxycodone 5 mg capsule 5 mg PO Q6H PRN (Reason: pain) Qty: 10 0RF acetaminophen 500 mg tablet 1,000 mg PO Q6H PRN (Reason: pain) Qty: 30 0RF ibuprofen 800 mg tablet 800 mg PO Q8H PRN (Reason: pain) Qty: 30 0RF Continued Elevit PO Patient Comments: contains iron and folate Discontinued aspirin 81 mg tablet,chewable 81 mg PO DAILY hydroxyzine HCl 25 mg tablet 25 mg PO TID PRN (Reason: itching) Qty: 90 0RF ursodiol 300 mg capsule 300 mg PO TID Qty: 60 0RF Follow up/Referrals: Barrett Cueto DO [Primary Care Provider] - Litzy Alcantara DO [Physician] - 11/09/24 11:15 am (Please follow up for your 1 week incision check on October 04 at 2:30pm. Please arrive at 2:15pm! Please note your Telehealth visit is on October 11 @4:15pm! Additionally, please follow up for your 6 week appointment on November 09 at 11:15am. Please arrive at 11:00am!) Diet/Activity/Treatments Diet: Diet as Tolerated and Regular Skin/Wound/Dressing Care Report to your healthcare provider any signs of infection, such as:: chills, fever, increased pain, unusual drainage and unusual redness Visit Report/Discharge Packet Instructions: DI for Hemorrhage, Preeclampsia and Eclampsia After Childbirth Stand Alone Forms: Discharge: Care, Patient Portal/API, Stroke Signs & Symptoms Discharge Data Primary Care Provider: Barrett Cueto
[2024-09-29] MEDS: PRENATAL VIT,CALC/IRON/FOLIC 1 TABLET 1 TAB PO (10:47)
[2024-09-29] MEDS: FERROUS SULFATE 325 MG TABLET PO (10:47)
[2024-09-29 15:43] VITALS: BP 137/62; PULSE 67; RESP 12; TEMP 37.2
== END 2024-09-29 15:43 | disposition home or self-care (01) | DRG 787 ==
PROVIDERS: Admitting Provider Student in an Organized Health Care Education/Training Program; PCP Family Medicine; Referring Provider Student in an Organized Health Care Education/Training Program; Visit Provider Student in an Organized Health Care Education/Training Program
PROC: 10D00Z1 Extraction of Products of Conception, Low, Open Approach (ICD-10-PCS; CPT 59514; principal; 2024-09-27 12:15)
DX: O26.643 Intrahepatic cholestasis of pregnancy, third trimester (principal); D62 Acute posthemorrhagic anemia; O13.4 Gestational [pregnancy-induced] hypertension without significant proteinuria, complicating childbirth; Z3A.37 37 weeks gestation of pregnancy; Z37.0 Single live birth; O90.81 Anemia of the puerperium
CPT/HCPCS: 36415; 59050; 59510; 59514; 80053; 85025; 86850; 86900; 86901; J0131; J0690; J1885; J2274; J2405; J2590; S0191

== ENCOUNTER → 2024-11-09 11:35 | Outpatient (CLI) | payer OTHER, SELFPAY | LOC: LAB 11:36 | PROVIDERS: PCP Family Medicine; Visit Provider Student in an Organized Health Care Education/Training Program | DX: R30.0 Dysuria (principal) | CPT/HCPCS: 87086 ==